=== PATIENT | male | born 1970 | race Caucasian/White ===

== ENCOUNTER → 2016-12-22 | Day surgery (SDC) | payer OTHER ==
[2016-12-13 08:46] VITALS: BMI 31.0
[~2016-12-22] VITALS: Ht 188 cm; Wt 109.1 kg
[~2016-12-22] MED LIST: GLUCTAB7 PO; LIDOCAINE HCL 2% 2 ML VIAL (20MG/ML) ONE; MIDAZOLAM HCL 1 MG/ML 2ML VIAL ONE; MULT-506 PO; PROPOFOL IV EMULSION 10 MG/ML 20 ML VIAL IV ONE; SODIUM CHLORIDE 0.9% 500ML 500 ML IV ONE
[2016-12-22 08:11] VITALS: Ht 188 cm; Wt 109.1 kg
--- NOTE | 2016-12-22 08:59 | Endo History and Physical ---
History & Physical Date of Service: Dec 22, 2016. Chief Complaint: FAMILY HX OF COLON CANCER Referring Physician: DR. RAFITA HERNANDEZ History of Present Illness Family hx of colon cancer. Past Surgical History Hx Cardiac Surgery: No Hx Internal Defibrillator: No Hx Pacemaker: No Hx Abdominal Surgery: No Hx of Implantable Prosthesis: No Hx Post-Op Nausea and Vomiting: No Hx Cancer Surgery: No Hx Thoracic Surgery: No Hx Orthopedic: Yes (LT KNEE SURGERY) Hx Urinary Tract Surgery: No Family History Colon CA Social History Smoking Status: Never Smoker Hx Substance Use: No Hx Alcohol Use: No Allergies Coded Allergies: No Known Allergies (Verified , 12/22/16) Current Medications Reported Home Medications Medications Dose Route/Sig Max Daily Dose Days Date Category Glucosamine Chondroitin (Juicqrrkfet-Fltklnyplao-Tpf C-) 1 Tab Tab 1 Tab PO DAILY 12/13/16 Reported Multivitamin (Multivitamins) Tab 1 Tab PO DAILY 08/31/16 Reported Vital Signs Weight (Kilograms): 109.09 Height (Feet): 6 Height (Inches): 2 Date Time Temp Pulse Resp B/P Pulse Ox O2 Delivery O2 Flow Rate FiO2 12/22/16 08:23 36.7 60 18 126/81 96 Room Air Physical Exam General Appearance: no apparent distress Respiratory/Chest: Respiratory effort: no dyspnea Auscultation: breath sounds normal Cardiovascular: Heart Auscultation: RRR Abdomen: Inspection & Palpation: soft Liver: non-tender Assessment and Plan stable for colonoscopy
--- NOTE | 2016-12-22 09:26 | GI REPORT ---
Procedure Date: 12/22/2016 8:59 AM Procedure: Colonoscopy Indications: Family history of colon cancer in a first-degree relative Medicines: See the Anesthesia note for documentation of the administered medications Complications: No immediate complications. Estimated Blood Loss: Estimated blood loss was minimal. Procedure: Pre-Anesthesia Assessment: - Prior to the procedure, a History and Physical was performed, and patient medications, allergies and sensitivities were reviewed. The patient's tolerance of previous anesthesia was reviewed. - The risks and benefits of the procedure and the sedation options and risks were discussed with the patient. All questions were answered and informed consent was obtained. - Patient identification and proposed procedure were verified prior to the procedure by the physician and the nurse. The procedure was verified in the pre-procedure area. - Pre-procedure physical examination revealed no contraindications to sedation. - After reviewing the risks and benefits, the patient was deemed in satisfactory condition to undergo the procedure. After I obtained informed consent, the scope was passed under direct vision. Throughout the procedure, the patient's blood pressure, pulse, and oxygen saturations were monitored continuously. The On-site loaner was introduced through the anus and advanced to the cecum, identified by appendiceal orifice and ileocecal valve. The colonoscopy was performed without difficulty. The patient tolerated the procedure well. The quality of the bowel preparation was good. Findings: The perianal and digital rectal examinations were normal. A 4 mm polyp was found at the hepatic flexure. The polyp was sessile. The polyp was removed with a cold snare. Resection and retrieval were complete. Verification of patient identification for the specimen was done by the physician and nurse using the patient's name and medical record number. Estimated blood loss was minimal. The exam was otherwise without abnormality on direct and retroflexion views. Impression: - One 4 mm polyp at the hepatic flexure, removed with a cold snare. Resected and retrieved. - The examination was otherwise normal on direct and retroflexion views. Recommendation: - Await pathology results. - Discharge patient to home. Lincoln Bazan M.D. Lincoln Bazan MD 12/22/2016 9:26:02 AM This report has been signed electronically. Note Initiated On: 12/22/2016 8:59 AM I attest to the content of the Intraoperative Record and orders documented therein, exceptions below
--- NOTE | 2016-12-22 09:27 | Discharge Instructions ---
Endoscopy Patient Instructions Date / Procedure(s) Performed Dec 22, 2016. Colonoscopy Allergy Information Coded Allergies: No Known Allergies (Verified , 12/22/16) Discharge Date / Findings Dec 22, 2016. small colon polyps. Medication Instructions Stopped Medication(s): VITAMINS Provider Instructions Activity Restrictions - No exercising or heavy lifting for 24 hours. - Do not drink alcohol the day of the procedure. - Do not drive a car or operate machinery until the day after the procedure. - Do not make any important decisions or sign important papers in 24 hours after the procedure. Following Day: - Return to full activity which may include returning to work/school. Diet Start your diet with liquids and light foods (jello, soup, juice, toast). Then eat your usual diet if not nauseated. Treatment For Common After Affects For mild abdominal pain, bloating, or excessive gas: - Rest - Eat lightly - Lie on right side Follow-Up Information Follow-up with DR. RAFITA HERNANDEZ as scheduled Anesthesia Information What You Should Know You have had a procedure that required some medicine to reduce anxiety and discomfort. This treatment is called moderate sedation. After receiving the treatment, you may be sleepy, but you will be able to breathe on your own. The effects of the treatment may last for several hours. Follow these instructions along with Activity/Diet recommendations noted above: * Do NOT do anything where dizziness or clumsiness would be dangerous. * Rest quietly at home today, then you can be up and about tomorrow. * Have a responsible person stay with you the rest of today. * You may have had an I.V. today. If so, you may take the dressing off later today. Recommendations Call your doctor if: * Trouble breathing * Continuous vomiting for more than 24 hours * Temperature above 101 degrees * Severe abdominal pain or bloating * Pain not relieved by pain medicine ordered * There is increased drainage or redness from any incision * A large amount of rectal bleeding greater than 2-3 tablespoons. (If you had a polyp/s removed or have hemorrhoids, a small amount of blood - from the rectum is to be expected.) * You have any unanswered questions or concerns. IN THE EVENT OF A SERIOUS EMERGENCY, GO TO THE NEAREST EMERGENCY ROOM Your discharge instructions were prepared by provider Lincoln Bazan. Patient Instructions Signature Page Camilo Alarcon Patient (or Guardian) Signature/Date: I have read and understand the instructions given to me by my caregivers. Caregiver/RN/Doctor Signature/Date: The above-named patient and/or guardian has received patient instructions on this date. + Original Patient Signature Page (only) stays with chart. Please make copy for patient.
[2016-12-22 09:55] VITALS: BP 130/81; PULSE 61; O2SAT 98
--- NOTE | 2016-12-22 12:02 | Anesthesiology Progress Note ---
Anesthesia Post Op Note Date & Time Dec 22, 2016 at 12:02 Vital Signs Pain Intensity: 0 Vital Signs Past 12 Hours Date Time Temp Pulse Resp B/P Pulse Ox O2 Delivery O2 Flow Rate FiO2 12/22/16 09:55 61 18 130/81 98 Room Air 12/22/16 09:40 60 18 125/82 99 Room Air 12/22/16 09:25 64 20 114/67 97 Room Air 12/22/16 08:23 36.7 60 18 126/81 96 Room Air Notes Mental Status: alert / awake / arousable, participated in evaluation Pt Amnestic to Procedure: Yes Nausea / Vomiting: adequately controlled Pain: adequately controlled Airway Patency, RR, SpO2: stable & adequate BP & HR: stable & adequate Hydration State: stable & adequate Anesthetic Complications: no major complications apparent
== END | disposition home or self-care (01) ==
LOC: C.GI 07:58
PROVIDERS: ATTEND Internal Medicine Gastroenterology
DX: Z12.11 Encounter for screening for malignant neoplasm of colon (principal); Z80.0 Family history of malignant neoplasm of digestive organs; D12.3 Benign neoplasm of transverse colon; Z98.890 Other specified postprocedural states